=== PATIENT | female | born 1990 | race Caucasian/White ===

== ENCOUNTER 2021-03-02 04:42 | Emergency (ER) | payer OTHER, SELFPAY ==
[2021-03-02 04:45] VITALS: BP 174/104; PULSE 118; RESP 29; TEMP 36.8; O2SAT 95; BMI 40.2
--- NOTE | 2021-03-02 04:54 | EKG12_ITS ---
Test Reason : CP Blood Pressure : / mmHG Vent. Rate : 095 BPM Atrial Rate : 095 BPM P-R Int : 160 ms QRS Dur : 086 ms QT Int : 342 ms P-R-T Axes : 030 -14 005 degrees QTc Int : 429 ms Normal sinus rhythm Moderate voltage criteria for LVH, may be normal variant Nonspecific T wave abnormality Poor R wave progression Abnormal ECG Confirmed by HIGINIO PRO, DE ([id number]), video tape editor FRANC PORTER ([id number]) on 03/03/2021 10:07:39 AM Referred By: JOELLEN Confirmed By:DE SYLVESTER MD
--- NOTE | 2021-03-02 04:54 | EX.ED.DYSGE1 ---
HPI History of Present Illness Chief Complaint: Palpitations Narrative Narrative: Patient presents with an abnormal sensation in her chest that came on just prior to arrival. Lasted for a few seconds. She then developed diffuse waves throughout her body. This happened twice at home. This scared her. Now she is having anxiety about it. She denies any chronic medical problems. No home treatment. She is unsure if she had a panic attack as she has never had this in the past. She denies any cardiac risk factors. She got herself worked up and had a hard time catching her breath due to anxiety afterwards. PFSH PFS Home Medications NK 03/02/21 [History Last Taken Unknown] Allergy/AdvReac Type Severity Reaction Status Date / Time No Known Allergies Allergy Verified 03/02/21 04:43 Social History Smoking Status: Current every day smoker ROS ROS ED ROS Narrative ROS General: Denies fever, chills, sweats Eyes: Denies visual changes, blurred vision, double vision ENT: Denies ear pain, rhinorrhea, sore throat Cardiovascular: See HPI Respiratory: Denies dyspnea, cough, sputum, dyspnea on exertion, orthopnea,PND GI: Denies abdominal pain, nausea, vomiting, diarrhea, constipation, melena : Denies dysuria, hematuria, frequency Musculoskeletal: Denies myalgias, arthralgias, neck pain, back pain Skin: Denies rash, abscess, abrasions Neuro: Denies headache, weakness, paresthesia Psych: Denies depression, anxiety Endo: Denies polyuria, polydipsia, polyphagia Heme: Denies easy bruising, easy bleeding, lymphadenopathy Allergy: Denies hives, swelling EXAM Physical Exam Narrative Exam Narrative: Vital signs reviewed General: Well-nourished well-developed Head: Normocephalic atraumatic Eyes: Pupils equal round and reactive to light extraocular movements intact ENT: TMs clear no hemotympanum no trauma Neck: Nontender full range of motion Cardiovascular: Regular rate rhythm no murmurs normal S1-S2 Respiratory: No distress clear to auscultation bilaterally chest nontender Abdomen: Soft nontender nondistended normal bowel sounds no masses Back: Nontender no CVA tenderness Extremities: Nontender active range of motion ?4 extremities no trauma Skin: Normal color no trauma Neuro alert oriented cranial nerves II through XII intact normal strength sensation reflexes Const Vital Signs: 03/02/21 04:45 03/02/21 04:48 03/02/21 05:16 Temperature 98.3 F Temperature Source Oral Pulse Rate 118 H 82 Respiratory Rate 29 H 16 Respiratory Effort Normal Respiratory Pattern Normal Blood Pressure 174/104 H 132/86 H Blood Pressure Mean 127 101 Pulse Ox 95 99 Oxygen Delivery Method Room Air Room Air MDM MDM MDM Narrative Medical decision making narrative: EKG obtained upon arrival shows normal sinus rhythm at a rate of 95. T wave inversion in lead III and V2. Lab work obtained. Lab work unremarkable except for mildly low hemoglobin at 10.3 and potassium mildly low at 3.2. I do not feel these are causing any acute symptoms. I feel the patient can follow-up as an outpatient. I suspect this was a panic attack type reaction. Lab Data Labs: Laboratory Results - last 24 hr 03/02/21 03/02/21 04:58 04:58 WBC 7.4 RBC 4.18 L Hgb 10.3 L Hct 33.8 L MCV 80.9 L MCH 24.6 L MCHC 30.5 L RDW Std Deviation 44.7 H RDW Coeff of Kathy 15.2 H Plt Count 272 MPV 7.9 Immature Gran % (Auto) 0.500 Neut % (Auto) 60.7 Lymph % (Auto) 29.5 [place] % (Auto) 7.1 Eos % (Auto) 1.8 Baso % (Auto) 0.4 Absolute Neuts (auto) 4.5 Absolute Lymphs (auto) 2.17 Nucleated RBC % 0 Sodium 138 Potassium 3.2 L Chloride 103 Carbon Dioxide 27.0 Anion Gap 8 BUN 7 Creatinine 0.78 Estim Creat Clear Calc 84.93 Est GFR (MDRD) Af Amer 112 Est GFR (MDRD) Non-Af 93 BUN/Creatinine Ratio 8.9 L Glucose 112 H Calcium 8.7 Discharge Plan Triage Chief Complaint: Palpitations ED Provider: Sedrick Galvan Dx/Rx/DC Orders Clinical Impression: Heart palpitations Instructions: ED Palpitations Prescriptions: No Action NK RF: 0 Primary Care Provider: Care Physician,No Primary Referrals: Michael Reynolds, [NON-STAFF] - Care Physician,No Primary [Primary Care Provider] - Disposition Disposition: Home, self care
[2021-03-02 05:02] LABS: Absolute Lymphocyte Count 2.17 X10^3/uL (0.83-4.51); Absolute Neutrophil Count 4.5 X10^3/uL (2.0-7.7); Basophil# 0.03 X10^3/uL; Basophil% 0.4 % (0-1); Eosinophil# 0.13 X10^3/uL; Eosinophils% 1.8 % (0-5); Hematocrit 33.8 % (37-47); Hemoglobin 10.3 g/dL (12.0-15.0); Lymphocyte # 2.17 X10^3/ul (0.83-4.51); Lymphocyte % 29.5 % (19-41); Mean Corp Hgb Conc 30.5 g/dL (32-36); Mean Corpuscular Hgb 24.6 pg (27.0-32.0); Mean Corpuscular Volume 80.9 fL (81-99); Mean Platelet Vol. 7.9 fl (6.2-12.0); Monocyte# 0.52 X10^3/uL; Monocyte% 7.1 % (0-10); NRBC Flagged by Analyzer 0 % (0-5); Neutrophil # 4.46 X10^3/uL (2.7-7.7); Neutrophil % 60.7 % (47-70); Platelet Count 272 K/mm3 (150-450); RBC Distribution Width CV 15.2 % (11.6-14.6); RBC Distribution Width SD 44.7 fl (35.1-43.9); Red Blood Count 4.18 M/mm3 (4.2-5.4); White Blood Count 7.4 K/mm3 (4.4-11.0)
[2021-03-02 05:16] VITALS: BP 132/86; PULSE 82; RESP 16; O2SAT 99
[2021-03-02 05:19] LABS: Anion Gap 8 (5-15); BUN 7 mg/dL (7-18); BUN/Creat Ratio 8.9 RATIO (10-20); Calcium,Total 8.7 mg/dL (8.5-10.1); Chloride 103 mmol/L (98-107); Creatinine, Serum 0.78 mg/dL (0.55-1.02); EST Glomerular Filtration Rate 93 mL/min (>60); Est Glom Filt Rate - Afr Amer 112 mL/min (>60); Estimated Creatinine Clearance 84.93 ml/min; Glucose 112 mg/dL (74-106); Potassium 3.2 mmol/L (3.5-5.1); Sodium Level 138 mmol/L (136-145)
== END 2021-03-02 05:34 | disposition home or self-care (01) ==
PROVIDERS: Emergency Provider Emergency Medicine
DX: R00.2 Palpitations (principal); D64.9 Anemia, unspecified; E87.6 Hypokalemia; F17.200 Nicotine dependence, unspecified, uncomplicated
CPT/HCPCS: 80048; 85025; 93005; 99283; A4216